=== PATIENT | female | born 1950 | race Caucasian/White ===

== ENCOUNTER 2020-07-08 14:15 | Emergency (ER) | payer MEDICARE ==
[~2020-07-08 14:15] MED LIST: METRONIDAZOLE500 MG PO; NORCO 5/3251 EACH PO; VIBRAMYCIN100 M1 PO
[2020-07-08] MEDS ORDERED: ULTRAM50 MG PO (17:49)
== END 2020-07-08 18:21 | disposition home or self-care (01) ==
LOC: FER 14:15
DX: S42.201A Unspecified fracture of upper end of right humerus, initial encounter for closed fracture (principal); M25.511 Pain in right shoulder; R07.81 Pleurodynia; E11.40 Type 2 diabetes mellitus with diabetic neuropathy, unspecified; Z79.4 Long term (current) use of insulin; Z86.73 Personal history of transient ischemic attack (TIA), and cerebral infarction without residual deficits; W01.10XA Fall on same level from slipping, tripping and stumbling with subsequent striking against unspecified object, initial encounter; Y92.009 Unspecified place in unspecified non-institutional (private) residence as the place of occurrence of the external cause
CPT/HCPCS: 71101; 73060; 73080; 74018